=== PATIENT | male | born 1945 | race Caucasian/White ===

== ENCOUNTER 2021-12-22 12:13 | Emergency (ER) | payer MEDICARE ==
[~2021-12-22] VITALS: Ht 190.5 cm; Wt 100.0 kg
[2021-12-22 13:10] VITALS: BP 179/81
[2021-12-22] MEDS ORDERED: KEFLEX500 MG PO (13:24)
== END 2021-12-22 14:04 | disposition home or self-care (01) ==
LOC: ED 12:13
DX: S61.512A Laceration without foreign body of left wrist, initial encounter (principal); S61.412A Laceration without foreign body of left hand, initial encounter; S51.812A Laceration without foreign body of left forearm, initial encounter; L03.114 Cellulitis of left upper limb; I10 Essential (primary) hypertension; E78.00 Pure hypercholesterolemia, unspecified; I25.2 Old myocardial infarction; W01.190A Fall on same level from slipping, tripping and stumbling with subsequent striking against furniture, initial encounter; Y92.007 Garden or yard of unspecified non-institutional (private) residence as the place of occurrence of the external cause